=== PATIENT | male | born 1965 | race African-American/Black ===

== ENCOUNTER 2019-12-19 15:07 | Emergency (ER) | payer MEDICAID, OTHER ==
[~2019-12-19] VITALS: Ht 180.3 cm; Wt 68.3 kg
[2019-12-19] MEDS ORDERED: SODIUM CHLORIDE 0.9% 1,000 ML IV ONE ×2 (15:10→15:15)
[2019-12-19] MEDS ORDERED: MORPHINE SULFATE 4 MG/ML CPJ (NOT FOR IM USE) IV STA (15:10)
[2019-12-19] MEDS ORDERED: ONDANSETRON HCL 4MG/2ML INJ IV STA (15:10)
[2019-12-19] MEDS ORDERED: TETANUS, DIPHTHERIA, PERTUSSIS VAC/PF 0.5ML (>7YR OLD) IM ONE (15:15)
[2019-12-19] MEDS ORDERED: CEFAZOLIN 1000MG PREMIX 50 ML IV ONE (15:15)
[2019-12-19 15:35] LABS: BASOPHILS % 0.4 % (0.0-2.0); EOSINOPHILS % 0.4 % (0.0-5.0); HEMATOCRIT. 38.8 % (42.0-52.0); HEMOGLOBIN. 13.2 g/dL (14.0-18.0); LYMPHOCYTES % 35.3 % (20.0-50.0); MEAN CORPUSCULAR HEMOGLOBIN 31.1 pg (28.0-32.0); MEAN CORPUSCULAR VOLUME 91.2 fL (80.0-94.0); MEAN PLATELET VOLUME 6.7 fl (7.4-10.4); MONOCYTES % 8.6 % (2.0-8.0); NEUTROPHILS % 55.3 % (40.0-76.0); PLATELET 345 x1000/uL (130-400); RED BLOOD CELL COUNT 4.25 mill/uL (4.7-6.1); RED CELL DISTRIBUTION WIDTH 12.8 % (11.6-14.6)
[2019-12-19 15:37] LABS: CHLORIDE 106 mEq/L (98-107)
[2019-12-19 15:39] LABS: PROTHROMBIN TIME 10.8 sec (9.6-11.0)
[2019-12-19 15:41] LABS: ETHANOL BLOOD < 10 mg/dL
[2019-12-19] MEDS ORDERED: HYDROCODONE/ACETAMINOPHEN 5/325MG TABLET PO STA (16:10)
[2019-12-19] MEDS ORDERED: POTASSIUM CHLORIDE 20MEQ TABLET SR PO ONE (16:45)
[2019-12-19] MEDS ORDERED: BACITRACIN ZINC OINT UDPKT TOP ONE (17:15)
[2019-12-19] MEDS ORDERED: LIDOCAINE HCL/EPINEPHRINE 1%-EPI 1:100,000 20 ML VIAL INFIL NR (17:15)
[2019-12-19] MEDS ORDERED: LIDOCAINE 1%/EPI 1:100,000 10 ML VIAL IJ ONE (17:15)
[2019-12-19 20:28] VITALS: BP 138/87
== END 2019-12-19 20:43 | disposition home or self-care (01) ==
LOC: ER 15:07
DX: S41.112A Laceration without foreign body of left upper arm, initial encounter (principal); W34.09XA Accidental discharge from other specified firearms, initial encounter; Y93.89 Activity, other specified; Y92.89 Other specified places as the place of occurrence of the external cause; Y99.8 Other external cause status; E87.6 Hypokalemia; Z98.890 Other specified postprocedural states
CPT/HCPCS: 36415; 71045; 73060; 80053; 80320; 82962; 85025; 85610; 86850; 86900; 86901; 90471; 90715; 93005; 96365; 96375; 99285; J0690; J2270; J2405; J3490; J7030; G0480

== ENCOUNTER 2021-04-03 19:59 | Emergency (ER) | payer MEDICAID ==
[~2021-04-03] VITALS: Ht 177.8 cm; Wt 67.0 kg
[2021-04-04] MEDS ORDERED: LIDOCAINE HCL/EPINEPHRINE 1%-EPI 1:100,000 20 ML VIAL INFIL ONE (00:30)
[2021-04-04] MEDS ORDERED: TETANUS, DIPHTHERIA, PERTUSSIS VAC/PF 0.5ML (>10YR OLD) IM ONE (00:30)
[2021-04-04] MEDS ORDERED: BACITRACIN ZINC OINT UDPKT TOP ONE (00:30)
[2021-04-04 01:00] VITALS: BP 129/90
[2021-04-04] MEDS ORDERED: CEPH500C2 MT (01:28)
== END 2021-04-04 01:44 | disposition home or self-care (01) ==
LOC: ER 19:59
DX: S01.01XA Laceration without foreign body of scalp, initial encounter (principal); S51.811A Laceration without foreign body of right forearm, initial encounter; I10 Essential (primary) hypertension; Y08.89XA Assault by other specified means, initial encounter; Y93.9 Activity, unspecified; Y92.9 Unspecified place or not applicable; Z98.890 Other specified postprocedural states
CPT/HCPCS: 12004; 90471; 90715; 99283; J3490

== ENCOUNTER 2021-04-22 07:29 | Emergency (ER) | payer MEDICAID ==
[~2021-04-22] VITALS: Ht 175.3 cm; Wt 68.0 kg
[~2021-04-22 07:29] MED LIST: CEPH500C2 MT
[2021-04-22 08:10] VITALS: BP 148/99
== END 2021-04-22 08:20 | disposition home or self-care (01) ==
LOC: ER 07:38
DX: S41.111D Laceration without foreign body of right upper arm, subsequent encounter (principal); X58.XXXD Exposure to other specified factors, subsequent encounter; I10 Essential (primary) hypertension
CPT/HCPCS: 99281; Z7610

== ENCOUNTER 2023-07-24 14:51 | Inpatient (IN) | payer MEDICAID ==
[~2023-07-24] VITALS: Ht 175.3 cm; Wt 65.3 kg
[2023-07-24] VITALS (7 sets, daily range): BP systolic 127–138; BP diastolic 83–98; PULSE 79–91; RESP 22–30; TEMP 97–98.3
[2023-07-24] MEDS: ALBUTEROL (0.083%) 2.5MG/3ML NEB HHN STA (15:13)
[2023-07-24] MEDS: IPRATROPIUM BROMIDE (0.02%) 0.5MG/2.5ML NEB HHN STA (15:13)
[2023-07-24] MEDS: METHYLPREDNISOLONE SOD SUCC 125MG/2ML (ACT-O-VIAL) IV STA (15:14)
[2023-07-24 15:20] LABS: BASOPHILS % 0.3 % (0.0-2.0); HEMATOCRIT. 39.2 % (42.0-52.0); HEMOGLOBIN. 13.5 g/dL (14.0-18.0); LYMPHOCYTES % 9.4 % (20.0-50.0); MEAN CORPUSCULAR HGB CONC 34.3 g/dL (31.0-37.0); MEAN CORPUSCULAR VOLUME 90.2 fL (80.0-94.0); MEAN PLATELET VOLUME 6.7 fl (7.4-10.4); NEUTROPHILS % 82.3 % (40.0-76.0); PLATELET 355 x1000/uL (130-400); RED BLOOD CELL COUNT 4.35 mill/uL (4.7-6.1); RED CELL DISTRIBUTION WIDTH 12.4 % (11.6-14.6); WHITE BLOOD COUNT 8.9 x1000/uL (4.5-11.0)
[2023-07-24 15:44] LABS: ALANINE AMINOTRANSFERASE 22 IU/L (10-49); ALBUMIN 3.5 g/dL (3.2-4.8); ASPARTATE AMINOTRANSFERASE 25 IU/L (<34); BILIRUBIN TOTAL 0.5 mg/dL (0.1-1.0); CALCIUM 7.4 mg/dL (8.7-10.4); CARBON DIOXIDE 26 mEq/L (21-32); CHLORIDE 110 mEq/L (98-107); CREATININE 0.6 mg/dL (0.6-1.3); GLUCOSE 105 mg/dL (70-105); POTASSIUM 3.4 mEq/L (3.5-5.1); PROTEIN TOTAL 5.8 g/dL (6.0-8.3); SODIUM 143 mEq/L (136-145); TROPONIN I HIGH SENSITIVITY 20 ng/L (3.0-53); UREA NITROGEN BLOOD 6 mg/dL (9-23)
[2023-07-24] MEDS ORDERED: NITROGLYCERIN 0.4MG TABLET SL SL PRN (17:00)
[2023-07-24] MEDS ORDERED: KETOROLAC 15MG/ML VIAL IV PRN (17:00)
[2023-07-24] MEDS ORDERED: MAGNESIUM/ALUMINUM HYDROXIDE/SIMETHICONE 30ML UDC PO PRN (17:00)
[2023-07-24] MEDS ORDERED: ONDANSETRON HCL 4MG/2ML INJ IV PRN (17:00)
[2023-07-24] MEDS ORDERED: IPRATROPIUM/ALBUTEROL 0.5-3(2.5)MG/3ML NEB NEB PRN (17:00)
[2023-07-24] MEDS ORDERED: CLONIDINE 0.1MG TABLET PO PRN (17:00)
[2023-07-24] MEDS ORDERED: ACETAMINOPHEN 325MG TABLET PO PRN ×2 (17:00)
[2023-07-24] MEDS ORDERED: DOCUSATE SODIUM 100MG CAPSULE PO PRN (17:00)
[2023-07-24] MEDS ORDERED: AZITHROMYCIN 500 MG in DEXT 5% WATER 250 ML IV SCH (18:00)
[2023-07-24 18:52] LABS: BG CARBOXYHEMOGLOBIN 0.3 % (0.5-1.5); BG DEOXYHEMOGLOBIN 0.5 % (0.0-5.0); BG FRACTION INSPIRED OXYGEN 100; BG HCO3 ACT 32.8 mmol/L (22.0-26.0); BG METHEMOGLOBIN 0.3 % (0.0-1.5); BG OXYGEN SATURATION 99.5 % (92.0-98.5); BG OXYHEMOGLOBIN 98.9 % (94.0-97.0); BG PCO2 69.7 mmHg (35.0-45.0); BG PO2 515.3 mmHg (75.0-100.0); BG SAMPLE SITE RIGHT RADIAL; BG TOTAL HEMOGLOBIN 13.5 g/dL (12.0-18.0)
[2023-07-24] MEDS: ENOXAPARIN 40MG/0.4ML SYR SUBCUT SCH (19:14)
[2023-07-24] MEDS: POTASSIUM CHLORIDE 20MEQ TABLET SR PO NR (19:14)
[2023-07-24 19:45] LABS: FOLIC ACID (FOLATE) SERUM > 20.00 ng/mL (>5.38); VITAMIN B12 SERUM 397 pg/mL (211-911)
[2023-07-24] MEDS: GUAIFENESIN 600MG ER TABLET PO SCH (20:52)
[2023-07-24] MEDS: FAMOTIDINE 20MG TABLET PO SCH (20:53)
[2023-07-24] MEDS: IPRATROPIUM/ALBUTEROL 0.5-3(2.5)MG/3ML NEB HHN SCH (21:00)
[2023-07-24] MEDS ORDERED: ZOLPIDEM TARTRATE 5MG TABLET PO PRN (21:00)
[2023-07-24] MEDS: AZITHROMYCIN 500 MG in DEXT 5% WATER 250 ML IV SCH (21:54)
[2023-07-24] MEDS: METHYLPREDNISOLONE SOD SUCC 125MG/2ML (ACT-O-VIAL) IV SCH (21:54)
[2023-07-24 23:00] LABS: CHOLESTEROL 136 mg/dL (<200); CREATINE KINASE 296 IU/L (46-171); CREATINE KINASE MB FRACTION 6.7 ng/mL (0.5-3.6); HDL CHOLESTEROL 53 mg/dL (>55); IRON 20 ug/dL (65-175); LDL CHOLESTEROL 78 mg/dL (5-100); T4 FREE 0.79 ng/dL (0.89-1.76); THYROID STIMULATING HORMONE < 0.10 uIU/mL (0.55-4.78); TOTAL IRON BINDING CAPACITY 385 ug/dl (250-425); TRIGLYCERIDE 30 mg/dL (0-150); TROPONIN I HIGH SENSITIVITY 25 ng/L (3.0-53)
[2023-07-24 23:03] LABS: ETHANOL BLOOD < 10 mg/dL (<10)
[2023-07-25] VITALS (18 sets, daily range): BP systolic 114–150; BP diastolic 75–105; PULSE 82–113; RESP 18–35; TEMP 97–98.7
[2023-07-25] MEDS: GUAIFENESIN 200MG/10ML SUGAR FREE UDC PO PRN (04:09)
[2023-07-25 07:34] LABS: HEMATOCRIT. 38.2 % (42.0-52.0); MEAN CORPUSCULAR HEMOGLOBIN 30.9 pg (28.0-32.0); MEAN CORPUSCULAR HGB CONC 34.1 g/dL (31.0-37.0); MEAN CORPUSCULAR VOLUME 90.8 fL (80.0-94.0); MEAN PLATELET VOLUME 7.1 fl (7.4-10.4); PLATELET 334 x1000/uL (130-400); RED BLOOD CELL COUNT 4.21 mill/uL (4.7-6.1); RED CELL DISTRIBUTION WIDTH 12.7 % (11.6-14.6); WHITE BLOOD COUNT 9.3 x1000/uL (4.5-11.0)
[2023-07-25 07:56] LABS: ALANINE AMINOTRANSFERASE 20 IU/L (10-49); ASPARTATE AMINOTRANSFERASE 28 IU/L (<34); BILIRUBIN TOTAL 0.4 mg/dL (0.1-1.0); CALCIUM 8.9 mg/dL (8.7-10.4); CARBON DIOXIDE 29 mEq/L (21-32); CHLORIDE 102 mEq/L (98-107); CREATINE KINASE 228 IU/L (46-171); CREATINE KINASE MB FRACTION 7.1 ng/mL (0.5-3.6); CREATININE 0.7 mg/dL (0.6-1.3); GLUCOSE 129 mg/dL (70-105); PHOSPHORUS 4.6 mg/dL (2.5-4.9); POTASSIUM 4.8 mEq/L (3.5-5.1); PROTEIN TOTAL 6.5 g/dL (6.0-8.3); SODIUM 138 mEq/L (136-145); TROPONIN I HIGH SENSITIVITY 14 ng/L (3.0-53); UREA NITROGEN BLOOD 11 mg/dL (9-23)
[2023-07-25 08:10] LABS: DIFFERENTIAL COMMENT 1
[2023-07-25] MEDS: AMLODIPINE 10MG TABLET PO SCH (08:19)
[2023-07-25] MEDS: ASPIRIN 325MG EC TABLET PO SCH (08:19)
[2023-07-25] MEDS: BUDESONIDE 0.5MG/2ML NEB HHN SCH (09:27)
[2023-07-25 14:38] LABS: BG BASE EXCESS 5.3 mmol/L (-2.0-2.0); BG CARBOXYHEMOGLOBIN 0.3 % (0.5-1.5); BG DEOXYHEMOGLOBIN 3.3 % (0.0-5.0); BG FRACTION INSPIRED OXYGEN 40; BG METHEMOGLOBIN 0.3 % (0.0-1.5); BG OXYGEN SATURATION 96.7 % (92.0-98.5); BG OXYHEMOGLOBIN 96.1 % (94.0-97.0); BG PCO2 63.1 mmHg (35.0-45.0); BG PH 7.337 (7.350-7.450); BG SAMPLE SITE RIGHT RADIAL; BG TOTAL HEMOGLOBIN 13.7 g/dL (12.0-18.0); BG VENT MODE MASK - BIPAP
[2023-07-25 17:07] LABS: *AMPHETAMINES SCREEN URINE NEGATIVE (NEGATIVE); *BARBITURATES SCREEN URINE NEGATIVE (NEGATIVE); *BENZODIAZEPINES SCREEN URINE NEGATIVE (NEGATIVE); *COCAINE SCREEN URINE PRESUMPTIVE POSITIVE (NEGATIVE); CANNABINOID URINE SCREEN NEGATIVE (NEGATIVE); ECSTASY MDMA SCREEN URINE NEGATIVE (NEGATIVE); METHADONE URINE SCREEN Neg (NEGATIVE); OPIATES URINE SCREEN NEGATIVE (NEGATIVE); PHENCYCLIDINE URINE SCREEN NEGATIVE (NEGATIVE)
[2023-07-25 23:58] LABS: PLATELET ESTIMATE NORMAL
[2023-07-26] VITALS (15 sets, daily range): BP systolic 106–145; BP diastolic 72–99; PULSE 78–102; RESP 19–30; TEMP 96.6–98.5; O2SAT 99
[2023-07-27] VITALS (18 sets, daily range): BP systolic 120–152; BP diastolic 68–95; PULSE 71–114; RESP 18–26; TEMP 97–98.2; O2SAT 98–100
[2023-07-28] VITALS (11 sets, daily range): BP systolic 117–157; BP diastolic 80–115; PULSE 83–113; RESP 18–36; TEMP 97–97.8; O2SAT 95–100
[2023-07-28] MEDS ORDERED: ATROV INH (10:22)
[2023-07-28] MEDS ORDERED: AZIT500T8 MT (10:22)
[2023-07-28] MEDS ORDERED: P20 MT (10:22)
[2023-07-28] MEDS ORDERED: ALBU6.7H15 INH (10:22)
== END 2023-07-28 12:45 | disposition home or self-care (01) | DRG 133 ==
LOC: EDBEDREQ 15:02 → ER 15:07 → EDBEDREQTM 16:37 → EDBEDREQ 16:37 → 5EST 18:39
PROVIDERS: ADMIT Internal Medicine; ATTEND Internal Medicine
PROC: 5A09457 Assistance with Respiratory Ventilation, 24-96 Consecutive Hours, Continuous Positive Airway Pressure (ICD-10-PCS; principal; 2023-07-24)
PROC: 5A09357 Assistance with Respiratory Ventilation, Less than 24 Consecutive Hours, Continuous Positive Airway Pressure (ICD-10-PCS; 2023-07-26)
PROC: 5A09357 Assistance with Respiratory Ventilation, Less than 24 Consecutive Hours, Continuous Positive Airway Pressure (ICD-10-PCS; 2023-07-28)
DX: J96.00 Acute respiratory failure, unspecified whether with hypoxia or hypercapnia (principal); J44.1 Chronic obstructive pulmonary disease with (acute) exacerbation; D63.8 Anemia in other chronic diseases classified elsewhere; J45.901 Unspecified asthma with (acute) exacerbation; E83.51 Hypocalcemia; E87.6 Hypokalemia; F17.210 Nicotine dependence, cigarettes, uncomplicated; I10 Essential (primary) hypertension; Z79.899 Other long term (current) drug therapy
CPT/HCPCS: 36415; 36600; 71045; 80053; 80061; 80305; 80320; 82375; 82550; 82553; 82607; 82746; 82805; 83036; 83540; 83550; 83605; 83735; 83880; 84100; 84145; 84439; 84443; 84484; 85025; 85379; 93005; 93306; 93970; 94640; 94660; 99291; J0456; J1650; J2930; J7060; J7626; G0480